=== PATIENT | male | born 1965 | race African-American/Black ===

== ENCOUNTER 2018-03-24 21:55 | Emergency (ER) | payer OTHER ==
[2018-03-24 22:06] VITALS: BP 142/71; PULSE 88; TEMP 98.2; BMI 25.0
[2018-03-25] MEDS ORDERED: LIDOCAINE 5% TOPICAL PATCH TP ONE (00:47)
[2018-03-25] MEDS ORDERED: IBUPROFEN 400 MG TABLET (FP) PO ONE ×2 (00:47→01:06)
[2018-03-25] MEDS ORDERED: CYCLOBENZAPRINE HCL 5 MG TABLET PO ONE (00:50)
[2018-03-25] MEDS ORDERED: LIDOCAINE 5% TOPICAL PATCH ONE (01:06)
[2018-03-25] MEDS ORDERED: CYCLOBENZAPRINE HCL 10 MG TABLET (FP) ONE (01:06)
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
[2018-03-25] MEDS ORDERED: LIDOCAINE PATCH REMOVAL MC SCH (22:00)
== END 2018-03-25 04:40 | disposition home or self-care (01) ==
LOC: JER 21:55 → JERFT 21:55 → JER 03-25 04:40
DX: S39.012A Strain of muscle, fascia and tendon of lower back, initial encounter (principal); V44.5XXA Car driver injured in collision with heavy transport vehicle or bus in traffic accident, initial encounter; Y92.488 Other paved roadways as the place of occurrence of the external cause; Y93.89 Activity, other specified; Y99.8 Other external cause status
CPT/HCPCS: 72100-TC-FY; 99281-25

== ENCOUNTER 2022-01-08 15:09 | Emergency (ER) | payer OTHER ==
[2022-01-08 15:18] VITALS: BP 144/77; PULSE 85; RESP 19; TEMP 98.3; BMI 25.8
== END 2022-01-08 17:48 | disposition home or self-care (01) ==
LOC: JERFT 15:09
PROC: 0H98XZZ Drainage of Buttock Skin, External Approach (ICD-10-PCS; principal; 2022-01-08)
DX: L72.3 Sebaceous cyst (principal)
CPT/HCPCS: 99282-25

== ENCOUNTER 2022-01-09 18:36 | Emergency (ER) | payer OTHER ==
[2022-01-09 19:10] VITALS: BP 177/91; PULSE 76; RESP 18; TEMP 98; BMI 25.8
[2022-01-09] MEDS ORDERED: KETOROLAC TROMETHAMINE 30 MG/1 ML VIAL IM ONE (20:07)
[2022-01-09] MEDS ORDERED: KETOROLAC TROMETHAMINE 30 MG/1 ML VIAL ONE (20:08)
== END 2022-01-09 21:49 | disposition home or self-care (01) ==
LOC: JERFT 18:36
PROC: 3E023GC Introduction of Other Therapeutic Substance into Muscle, Percutaneous Approach (ICD-10-PCS; principal; 2022-01-09)
DX: L02.31 Cutaneous abscess of buttock (principal); Z48.01 Encounter for change or removal of surgical wound dressing
CPT/HCPCS: 96372; 99284-25